=== PATIENT | female | born 1955 | race Caucasian/White ===

== ENCOUNTER 2021-08-09 18:41 | Inpatient (IN) | payer MEDICARE ==
[~2021-08-09] VITALS: Ht 167.6 cm; Wt 88.3 kg
--- NOTE | 2021-08-09 | NUR ---
SHARA NOTES COMPLAINED OF RIGHT HIP PAIN- MORPHINE 2 MG IV GIVEN ORDERED, V/S STABLE Addendum: 08/10/21 at 0348 by EAGLE MARTINEZ RN RIGHT DATE 08/10/21
--- NOTE | 2021-08-09 18:46 | NUR ---
BIBRA 59 FROM HOME C/O R HIP PAIN S/P GLF "I MISSED 2 STEP" 100MCG FENTANYL IV GIVEN BY EMS LABORER TIN CAN. VITALS ARE WITHIN NORMAL LIMITS. BREATHING IS EVEN AND UNLABORED.
--- NOTE | 2021-08-09 18:55 | NUR ---
AT BEDSIDE FOR EVAL.
--- NOTE | 2021-08-09 19:48 | NUR ---
BLOOD COLLECTED SENT TO LAB
--- NOTE | 2021-08-09 20:17 | NUR ---
CALLED [facility] FOR COMMUNITY SUPPORT PROFESSIONAL DR ROSARIO, SPEAKING WITH DR SOLER
--- NOTE | 2021-08-09 20:21 | NUR ---
COVID SWAB COLLECTED AND SENT TO LAB
[2021-08-09 20:23] LABS: BASOPHILS % (AUTO) 0.3 % (0.0-2.0); EOSINOPHILS % (AUTO) 2.5 % (0.0-6.0); HEMATOCRIT 40 % (33-45); HEMOGLOBIN 13.4 g/dL (11.5-14.8); LYMPHOCYTES # (AUTO) 1.3 K/uL (0.8-4.8); LYMPHOCYTES % (AUTO) 11.9 % (20.0-44.0); MEAN CORPUSCULAR HGB CONC 34 g/dl (31.0-36.0); MEAN CORPUSCULAR VOLUME 81 fL (82-100); MONOCYTES # (AUTO) 0.7 K/uL (0.1-1.30); MONOCYTES % (AUTO) 6.2 % (2.0-12.0); NEUTROPHILS # (AUTO) 8.3 K/uL (1.8-8.9); NEUTROPHILS % (AUTO) 79.1 % (43.0-81.0); PLATELET COUNT (AUTO) 302 K/uL (150-450); RED BLOOD CELL COUNT(AUTO) 4.95 MIL/uL (4.0-5.2); WHITE BLOOD COUNT (AUTO) 10.5 K/uL (4.3-11.0)
[2021-08-09] MEDS ORDERED: MORPHINE SULFATE INJ 2 MG/ML DISP.SYRIN IV ONE (20:30)
[2021-08-09] MEDS ORDERED: ONDANSETRON HCL/PF - ER 4 MG/2 ML VIAL IV ONE (20:30)
[2021-08-09] MEDS ORDERED: ONDANSETRON HCL/PF 4 MG/2 ML VIAL ONE (20:32)
[2021-08-09] MEDS ORDERED: MORPHINE SULFATE INJ 4 MG/ML DISP.SYRIN ONE (20:32)
[2021-08-09 20:48] LABS: CALCIUM, SERUM 8.6 mg/dL (8.5-10.1); CREATININE 0.6 mg/dL (0.6-1.3); POTASSIUM 4.3 mmol/L (3.5-5.1)
--- NOTE | 2021-08-09 20:57 | NUR ---
LAB PAGED FOR BLOOD WORK RESULTS
--- NOTE | 2021-08-09 21:48 | NUR ---
MS 304-2
[2021-08-09] MEDS ORDERED: ACETAMINOPHEN 325 MG TABLET PO PRN (22:00)
[2021-08-09] MEDS ORDERED: ONDANSETRON HCL/PF 4 MG/2 ML VIAL IVP PRN (22:00)
[2021-08-09] MEDS ORDERED: DEXTROSE 50%-WATER 50 ML DISP.SYRIN IV PRN (22:00)
--- NOTE | 2021-08-09 22:38 | NUR ---
REPORT GIVEN TO SHARA GUILLERMO
--- NOTE | 2021-08-09 22:41 | NUR ---
PT TRANSFERRED, VSS, NO ACUTE DISTRESS NOTED.
[2021-08-09 22:45] VITALS: BP_SYST 134; BP_SYST 140; BP_DIAS 74; BP_DIAS 77
[2021-08-09 23:15] VITALS: BP 134/77
--- NOTE | 2021-08-09 23:15 | NUR ---
RN NOTES RECEIVED PATIENT FROM ER WITH DX. ACUTE HIP PAIN, A/OX4, ADMISSION INSTRUCTION WAS RENDERED PATIENT HAS PLAQUE PSORIASIS AT HER BACK BUT WAS NOT ABLE TAKE PICTURE BECAUSE PATIENT HAS HIP FRACTURE, ADMISSION INSTRUCTIONS WAS RENDEREDM CALL LIGHT WITHIN REACH,[id number], WILL CONTINUE TO MONITOR
[2021-08-09] MEDS: IV NS 0.9% 1,000 ML IV PRN (23:35)
[2021-08-09] MEDS: BLOOD SUGAR DIAGNOSTIC 1 EACH STRIP IN SCH (23:35)
--- NOTE | 2021-08-10 | NUR ---
RN NOTES COMPLAINED OF RIGHT HIP PAIN -MORPHINE 2 MG IV GIVEN ORDERED, V/S STABLE
--- NOTE | 2021-08-10 | NUR ---
RN NOTES BLOOD SUGAR-[id number], NO COVERAGE GIVEN PT, IS NPO
[2021-08-10] MEDS: MORPHINE SULFATE INJ 2 MG/ML DISP.SYRIN IV PRN ×6 (00:02→19:54)
[2021-08-10] MEDS ORDERED: METF-442 PO (01:42)
--- NOTE | 2021-08-10 04:00 | NUR ---
RN NOTES COMPLAINED OF RIGHT HIP PAIN- MORPHINE 2 MG IV GIVEN ORDERED, V/S STABLE
[2021-08-10] MEDS ORDERED: ROSU10TA2 PO (04:17)
[2021-08-10] MEDS ORDERED: AMLO-62 PO (04:17)
[2021-08-10] MEDS ORDERED: SEMA7TAB PO (04:17)
[2021-08-10] MEDS ORDERED: GLIP5TAB13 PO (04:17)
[2021-08-10] MEDS: BLOOD SUGAR DIAGNOSTIC 1 EACH STRIP IN SCH ×3 (05:34→18:01)
--- NOTE | 2021-08-10 06:30 | NUR ---
RN NOTES BLOOD SUGAR-[id number], NO COVERAGE PT. IS NPO
--- NOTE | 2021-08-10 06:57 | NUR ---
RN NOTES AWAKE, PAIN IS TOLERABLE AT THIS TIME, NO SOB, MORNING CARE RENDERED, CALL LIGHT WITHIN REACH, [id number], PT. NEEDS ATTENDED
[2021-08-10 07:23] LABS: BASOPHILS % (AUTO) 0.5 % (0.0-2.0); EOSINOPHILS % (AUTO) 2.8 % (0.0-6.0); HEMATOCRIT 35 % (33-45); HEMOGLOBIN 11.8 g/dL (11.5-14.8); LYMPHOCYTES # (AUTO) 1.6 K/uL (0.8-4.8); LYMPHOCYTES % (AUTO) 21.7 % (20.0-44.0); MEAN CORPUSCULAR HGB CONC 34 g/dl (31.0-36.0); MEAN CORPUSCULAR VOLUME 81 fL (82-100); MONOCYTES # (AUTO) 0.8 K/uL (0.1-1.30); MONOCYTES % (AUTO) 10.6 % (2.0-12.0); NEUTROPHILS # (AUTO) 4.8 K/uL (1.8-8.9); NEUTROPHILS % (AUTO) 64.4 % (43.0-81.0); PLATELET COUNT (AUTO) 267 K/uL (150-450); RED BLOOD CELL COUNT(AUTO) 4.31 MIL/uL (4.0-5.2); WHITE BLOOD COUNT (AUTO) 7.5 K/uL (4.3-11.0)
--- NOTE | 2021-08-10 07:37 | NUR ---
MS RN OPENING NOTES RECEIVED PATIENT IN BED AWAKE, A/O X4, VERBALLY RESPONSIVE. NO SIGNS OF ACUTE DISTRESS NOTED. ON ROOM AIR, TOLERATING WELL. NO SOB NOTED. IV ACCESS ON RFA #20G INTACT AND PATENT WITH NSS @75 ML/HR RUNNING. PATIENT REMAINS ON NPO FOR SURGERY. DENIES ANY PAIN AT THIS TIME. SAFETY MEASURES IN PLACE. BED LOCKED, SR UP X2, CALL LIGHT PLACED WITHIN EASY REACH. WILL CONTINUE TO MONITOR.
[2021-08-10 08:11] VITALS: BP 129/74
[2021-08-10] MEDS: PANTOPRAZOLE 40 MG VIAL IV SCH (08:49)
[2021-08-10 10:30] LABS: CALCIUM, SERUM 8.1 mg/dL (8.5-10.1); CREATININE 0.6 mg/dL (0.6-1.3); MAGNESIUM 1.4 mg/dL (1.8-2.4); PHOSPHORUS 4.3 mg/dL (2.5-4.9); POTASSIUM 4.1 mmol/L (3.5-5.1)
[2021-08-10] MEDS: IV NS 0.9% 1,000 ML IV PRN (12:35)
[2021-08-10 15:39] VITALS: BP 135/79
[2021-08-10] MEDS: INSULIN REGULAR, HUMAN 100 UNIT/ML 3 ML VIAL SQ PRN (18:04)
--- NOTE | 2021-08-10 19:00 | NUR ---
MS RN CLOSING NOTES PATIENT IN BED AWAKE, A/O X4, VERBALLY RESPONSIVE. NO SIGNS OF ACUTE DISTRESS NOTED. REMAINS ON ROOM AIR, TOLERATING WELL. NO SOB NOTED. IV ACCESS ON RFA #20G INTACT AND PATENT WITH NSS @75 ML/HR RUNNING. PATIENT WITH C/O PAIN ON RIGHT HIP, MORPHINE GIVEN ORDERED. SAFETY MEASURES IN PLACE. BED LOCKED, SR UP X2, CALL LIGHT PLACED WITHIN EASY REACH. WILL ENDORSE TO NEXT SHIFT.
[2021-08-10] MEDS ORDERED: INSULIN REGULAR, HUMAN 100 UNIT/ML 3 ML VIAL SQ PRN (19:30)
[2021-08-10] MEDS ORDERED: DEXTROSE 50%-WATER 50 ML DISP.SYRIN IV PRN (19:30)
--- NOTE | 2021-08-10 19:33 | NUR ---
MS RN OPENING NOTES: RECEIVED PATIENT AWAKE IN BED, BED IN LOW POSITION, CALL LIGHTS WITHIN REACH, NO COMPLAIN OF PAIN AND DISCOMFORT AT THIS TIME, PATIENT IS A/OX4 ABLE TO MAKE NEEDS KNOWN, WITH IV LINE AT RAC#20 WITH ONGOING NSS@75ML PER HOUR INFUSING WELL, PATIENT KEPT CLEAN AND DRY, ALL NEEDS MET WILL CONTINUE TO MONITOR.
[2021-08-10 20:00] VITALS: BP 135/86
[2021-08-10] MEDS ORDERED: diphenhydrAMINE HCL 50 MG/ML VIAL IV ONE (20:30)
[2021-08-10] MEDS ORDERED: ACETAMINOPHEN 325 MG TABLET PO ONE (20:30)
[2021-08-10] MEDS ORDERED: BLOOD SUGAR DIAGNOSTIC 1 EACH STRIP IN SCH (22:00)
[2021-08-10 22:09] VITALS: BP 103/54
[2021-08-10] MEDS: ATORVASTATIN 10 MG TABLET PO SCH (22:22)
--- NOTE | 2021-08-10 22:27 | NUR ---
RN NOTES: MEDICATION NOT GIVEN TRANSFUSION WILL DE DONE IN AM CN, NURSING SUPV MADE AWARE PROCEDURE AT 1400
[2021-08-10 22:39] VITALS: BP 135/86
--- NOTE | 2021-08-10 23:00 | NUR ---
RN NOTES: RECEIVED A TXT ORDER FROM CECIL ESCOBEDO TO ORDER AND TRANSFUSE 4 UNITS OF FFP PRIOR TO PROCEDURE ORDERED NOTED AND CARRIED OUT.
[2021-08-11] VITALS (8 sets, daily range): BP systolic 115–145; BP diastolic 69–81
[2021-08-11] MEDS: MORPHINE SULFATE INJ 2 MG/ML DISP.SYRIN IV PRN ×4 (00:41→22:46)
--- NOTE | 2021-08-11 01:02 | NUR ---
RN NOTES: [id number]- NO INSULIN GIVEN PATIENT ON NPO POST MIDNIGHT WITH PROCEDURE TOMORROW
[2021-08-11] MEDS: IV NS 0.9% 1,000 ML IV PRN (02:50)
[2021-08-11] MEDS: BLOOD SUGAR DIAGNOSTIC 1 EACH STRIP IN SCH ×4 (06:21→17:36)
[2021-08-11 06:37] LABS: BASOPHILS % (AUTO) 0.4 % (0.0-2.0); EOSINOPHILS % (AUTO) 2.3 % (0.0-6.0); HEMATOCRIT 34 % (33-45); HEMOGLOBIN 11.5 g/dL (11.5-14.8); LYMPHOCYTES # (AUTO) 1.1 K/uL (0.8-4.8); LYMPHOCYTES % (AUTO) 13.2 % (20.0-44.0); MEAN CORPUSCULAR HGB CONC 34 g/dl (31.0-36.0); MEAN CORPUSCULAR VOLUME 82 fL (82-100); MONOCYTES # (AUTO) 0.7 K/uL (0.1-1.30); MONOCYTES % (AUTO) 8.9 % (2.0-12.0); NEUTROPHILS # (AUTO) 6.1 K/uL (1.8-8.9); NEUTROPHILS % (AUTO) 75.2 % (43.0-81.0); PLATELET COUNT (AUTO) 234 K/uL (150-450); RED BLOOD CELL COUNT(AUTO) 4.18 MIL/uL (4.0-5.2); WHITE BLOOD COUNT (AUTO) 8.1 K/uL (4.3-11.0)
--- NOTE | 2021-08-11 06:50 | NUR ---
RN CLOSING NOTES: PATIENT SLEEP IN BED COMFORTABLY, AROUSABLE TO VERBAL STIMULI, BED IN LOW POSITION, CALL LIGHTS WITHIN REACH, NO COMPLAIN OF PAIN AND DISCOMFORT AT THIS TIME, PATIENT WITH IV LINE AT RAC#20 WITH ONGOING NSS@75ML/HR INFUSING WELL, PATIENT ON NPO PRIOR TO HIP SURGERY IN THE AFTERNOON, ON ROBERTSON CATHETER WITH 950CC URINE OUTPUT, PATIENT KEPT CLEAN AND DRY, ALL NEEDS MET, WILL ENDORSE TO INCOMING SHIFT.
--- NOTE | 2021-08-11 07:37 | NUR ---
MS RN OPENING NOTES RECEIVED PATIENT IN BED AWAKE, A/O X4, ABLE TO MAKE NEEDS KNOWN. NO SIGNS OF ACUTE DISTRESS NOTED. ON ROOM AIR, TOLERATING WELL. NO SOB NOTED. IV ACCESS ON RFA #20G INTACT AND PATENT WITH NSS @75 ML/HR RUNNING. PATIENT REMAINS ON NPO FOR SURGERY. DENIES ANY PAIN AT THIS TIME. WITH FC TO URINE BAG DRAINING CLEAR YELLOW COLORED URINE. SAFETY MEASURES IN PLACE. BED LOCKED, SR UP X2, CALL LIGHT PLACED WITHIN EASY REACH. WILL CONTINUE TO MONITOR ACCORDINGLY.
[2021-08-11] MEDS ORDERED: ACETAMINOPHEN 325 MG TABLET PO ONE (08:00)
[2021-08-11] MEDS: LOSARTAN POTASSIUM 50 MG TABLET PO SCH (08:00)
[2021-08-11] MEDS ORDERED: diphenhydrAMINE HCL 50 MG/ML VIAL IV ONE (08:00)
[2021-08-11] MEDS: glipiZIDE 5 MG TABLET PO SCH (08:01)
[2021-08-11] MEDS: METFORMIN 500 MG TABLET PO SCH ×2 (08:01→17:00)
[2021-08-11] MEDS: PANTOPRAZOLE 40 MG VIAL IV SCH (08:07)
--- NOTE | 2021-08-11 09:20 | NUR ---
RN NOTES STARTED TRANSFUSION OF FFP #1, VS WITHIN NORMAL LIMITS. BLOOD PRODUCTS VERIFIED BY 2 RN. WILL CONTINUE TO MONITOR.
--- NOTE | 2021-08-11 10:05 | NUR ---
RN NOTES FIRST UNIT FFP DONE. PATIENT TOLERATED TRANSFUSION WELL, NO UNTOWARD REACTIONS NOTED.
--- NOTE | 2021-08-11 10:20 | NUR ---
RN NOTES STARTED TRANSFUSION OF 2ND UNIT FFP. VITAL SIGSN WITHIN NORMAL LIMITS. BLOOD PRODCUT VERIFIED BY 2 RN. WILL CONTINUE TO MONITOR.
--- NOTE | 2021-08-11 11:05 | NUR ---
RN NOTES SECOND UNIT FFP DONE. PATIENT TOLERATED TRANSFUSION WELL, NO UNTOWARD REACTIONS NOTED.
--- NOTE | 2021-08-11 11:17 | NUR ---
RN NOTES STARTED TRANSFUSION OF 3RD UNIT FFP. VITAL SIGNS WITHIN NORMAL LIMITS. BLOOD PRODCUT VERIFIED BY 2 RN. WILL CONTINUE TO MONITOR.
--- NOTE | 2021-08-11 12:09 | NUR ---
RN NOTES 3RD UNIT FFP DONE. PATIENT TOLERATED TRANSFUSION WELL, NO UNTOWARD REACTIONS NOTED.
--- NOTE | 2021-08-11 13:50 | NUR ---
RN NOTES STARTED TRANSFUSION OF 4TH INIT FFP. VS WITHIN NORMAL LIMITS. WILL CONTINUE TO MONITOR ACCORDINGLY.
--- NOTE | 2021-08-11 14:40 | NUR ---
RN NOTES 4TH FFP TRANSFUSION DONE. NO UNTOWARD REACTIONS NOTED. SYSTEM ON TRANSFUSION SECTION UNABLE TO SAVE TRANSFUSION REPORT.
[2021-08-11] MEDS ORDERED: BUPIVACAINE 0.5 % PF 150 MG/30 ML VIAL ONE (14:59)
[2021-08-11] MEDS ORDERED: ANESTHESIA TRAY IN PYXIS 1 EA TRAY MC ONE (14:59)
--- NOTE | 2021-08-11 15:00 | NUR ---
RN NOTES PATIENT WAS PICKED UP BY O.R STAFF. LEFT UNIT IN STABLE CONDITION.
[2021-08-11] MEDS ORDERED: ROCURONIUM BROMIDE 50 MG/5 ML ONE ×2 (15:02→16:03)
[2021-08-11] MEDS ORDERED: FENTANYL PF 100MCG/2ML AMPUL ONE (15:02)
[2021-08-11] MEDS ORDERED: HYDROMORPHONE INJ 2 MG/ML DISP.SYRIN ONE (15:02)
[2021-08-11] MEDS ORDERED: MIDAZOLAM HCL 2 MG/2ML VIAL ONE (15:02)
[2021-08-11] MEDS ORDERED: TRANEXAMIC ACID 1,000 MG in IV NS 0.9% 100 ML IV ONE (16:00)
[2021-08-11] MEDS ORDERED: GELATIN SPONGE,ABSORBABLE 1 EA SPONGE TP ONE (16:03)
[2021-08-11] MEDS ORDERED: BISACODYL SUPP (10 MG) 10 MG/SUPP.RECT SUPP.RECT RC PRN (18:00)
[2021-08-11] MEDS ORDERED: SENNOSIDES 8.6 MG TABLET PO PRN (18:00)
[2021-08-11 18:18] LABS: HEMOGLOBIN 10.1 g/dL (11.5-14.8)
[2021-08-11] MEDS ORDERED: DOCUSATE SODIUM 100 MG CAPSULE PO PRN (18:30)
[2021-08-11] MEDS ORDERED: ZOLPIDEM TARTRATE 5 MG TABLET PO PRN (18:30)
--- NOTE | 2021-08-11 18:57 | NUR ---
MS RN CLOSING NOTES RECEIVED PATIENT FROM RECOVERY ROOM, AWAKE, A/O X4, ABLE TO MAKE NEEDS KNOWN. NO SIGNS OF ACUTE DISTRESS NOTED. O2 AT 3LPM, TOLERATING WELL. NO SOB NOTED. IV ACCESS ON RFA #20G INTACT AND PATENT WITH NSS @75 ML/HR RUNNING. IV ACESS ON RIGHT WRIST G#18, PATENT, INTACT AND FLUSHES WELL. PATIENT REMAINS ON REGULAR DIET. DENIES ANY PAIN AT THIS TIME. WITH FC TO URINE BAG DRAINING CLEAR YELLOW COLORED URINE. NOTED WITH DRY NAD INTACT DRESSING ON RIGHT HIP SURGICAL SITE. SAFETY MEASURES IN PLACE. BED LOCKED, SR UP X2, CALL LIGHT PLACED WITHIN EASY REACH. ALL NEEDS ATTENDED AND MET. DUE MEDS GIVEN ORDERED. WILL ENDORSE TO ONCOMING SHIFT FOR REJI.
[2021-08-11] MEDS: ATORVASTATIN 10 MG TABLET PO SCH (21:30)
[2021-08-12] MEDS: BLOOD SUGAR DIAGNOSTIC 1 EACH STRIP IN SCH ×5 (00:23→23:57)
[2021-08-12] MEDS: IV NS 0.9% 1,000 ML IV PRN (00:23)
[2021-08-12] MEDS: ANCEF 1 GM/50 ML D5W IV SCH ×2 (00:23→08:04)
[2021-08-12] MEDS: INSULIN REGULAR, HUMAN 100 UNIT/ML 3 ML VIAL SQ PRN ×4 (00:45→23:59)
[2021-08-12] MEDS: MORPHINE SULFATE INJ 2 MG/ML DISP.SYRIN IV PRN ×2 (04:50→10:14)
--- NOTE | 2021-08-12 04:50 | NUR ---
MS RN NOTES PAIN MANAGEMENT C/O RIGHT HIP PAIN 10/10 ON PAIN SCALE,MORPHINE 2MG IV GIVEN
--- NOTE | 2021-08-12 06:44 | NUR ---
MS RN NOTES AWAKE & RESPONSIVE. NOT IN ANY DISTRESS. NO SOB NOTED. DENIES ANY PAIN OR DISCOMFORT AT THIS TIME. WITH IVF INFUSING WELL. MONITORED ACCORDINGLY. CALL LIGHT WITHIN REACH. BED IN LOWEST POSITION. SR UP X 3 WITH BED ALARM ON FOR SAFETY. WILL ENDORSE TO NEXT SHIFT.
--- NOTE | 2021-08-12 07:20 | NUR ---
MS RN OPENING NOTES RECEIVED PATIENT IN AWAKE IN BED. A/O X4, ABLE TO MAKE NEEDS KNOWN. NO S/SX OF ACUTE DISTRESS NOTED. ON ROOM AIR, TOLERATING WELL. NO SOB NOTED. IV ACCESS RFA #20G INTACT AND PATENT WITH NSS RUNNING @75 ML/HR. DENIES ANY PAIN AT THIS TIME. PT WITH FC DRAINING CLEAR YELLOW COLORED URINE. SAFETY MEASURES IN PLACE WITH BED LOCKED AT LOW POSITION, SR UP X2, CALL LIGHT PLACED WITHIN EASY REACH. WILL CONTINUE TO MONITOR.
[2021-08-12 08:00] VITALS: BP 123/66
[2021-08-12] MEDS: glipiZIDE 5 MG TABLET PO SCH (08:22)
[2021-08-12] MEDS: LOSARTAN POTASSIUM 50 MG TABLET PO SCH (08:22)
[2021-08-12] MEDS: PANTOPRAZOLE 40 MG VIAL IV SCH (08:22)
[2021-08-12] MEDS: METFORMIN 500 MG TABLET PO SCH ×2 (08:22→16:38)
[2021-08-12 16:00] VITALS: BP 117/67
[2021-08-12] MEDS ORDERED: diphenhydrAMINE HCL 50 MG/ML VIAL IV ONE (19:00)
[2021-08-12] MEDS ORDERED: ACETAMINOPHEN 325 MG TABLET PO ONE (19:00)
--- NOTE | 2021-08-12 19:15 | NUR ---
MS RN CLOSING NOTES PATIENT IN BED. ABLE TO MAKE NEEDS KNOWN. NO S/SX OF ACUTE DISTRESS NOTED. ON ROOM AIR, TOLERATING WELL. NO SOB NOTED. IV ACCESS RFA #20G INTACT AND PATENT WITH NSS RUNNING @75 ML/HR. DENIES ANY PAIN AT THIS TIME. SAFETY MEASURES IN PLACE WITH BED LOCKED AT LOW POSITION, SR UP X2, CALL LIGHT PLACED WITHIN EASY REACH. WILL ENDORSE CONTINUITY OF CARE TO ONCOMING SHIFT.
--- NOTE | 2021-08-12 19:30 | NUR ---
MS RN OPENING NOTES: RECEIVED REPORT AT PATIENT'S BEDSIDE. PATIENT IN NAD AND VSS AT THIS TIME. ALERT AND ORIENTED X4. COMMUNICATIVE. DISCUSSED WITH PATIENT NEW ORDER FOR 2 UNITS FFP. PATIENT ASKED, "WHY DID THE DOCTOR ORDER TWO MORE UNITS? I JUST RECEIVED 4 UNITS YESTERDAY." SENT MESSAGE TO DR. DEGROOT RELAYING LAST LAB RESULT WHICH WAS YESTERDAY @1807 HGB 10. @ 2009 DR. DEGROOT ORDERED STAT DRAW CBC, PTT, PT W INR. @2019 LAB DRAWN. RESULTS PENDING
[2021-08-12 20:00] VITALS: BP 133/74
[2021-08-12 20:25] LABS: BASOPHILS % (AUTO) 0.3 % (0.0-2.0); EOSINOPHILS % (AUTO) 1.7 % (0.0-6.0); HEMATOCRIT 27 % (33-45); HEMOGLOBIN 8.9 g/dL (11.5-14.8); LYMPHOCYTES # (AUTO) 1.3 K/uL (0.8-4.8); LYMPHOCYTES % (AUTO) 14.5 % (20.0-44.0); MEAN CORPUSCULAR HGB CONC 34 g/dl (31.0-36.0); MEAN CORPUSCULAR VOLUME 81 fL (82-100); MONOCYTES # (AUTO) 0.9 K/uL (0.1-1.30); MONOCYTES % (AUTO) 9.9 % (2.0-12.0); NEUTROPHILS # (AUTO) 6.6 K/uL (1.8-8.9); NEUTROPHILS % (AUTO) 73.6 % (43.0-81.0); PLATELET COUNT (AUTO) 247 K/uL (150-450); RED BLOOD CELL COUNT(AUTO) 3.26 MIL/uL (4.0-5.2)
[2021-08-12 20:40] LABS: ALBUMIN 2.7 g/dL (3.4-5.0); BILIRUBIN,TOTAL 0.6 mg/dL (0.2-1.0); CALCIUM, SERUM 7.3 mg/dL (8.5-10.1); CREATININE 0.7 mg/dL (0.6-1.3); PHOSPHORUS 2.7 mg/dL (2.5-4.9); POTASSIUM 3.8 mmol/L (3.5-5.1); TOTAL PROTEIN, SERUM 6.6 g/dL (6.4-8.2)
--- NOTE | 2021-08-12 20:45 | NUR ---
MS RN NOTES: LAB RESULTS RECEIVED HGB 8.8.[address] DEGROOT ON UNIT AND NOTIFIED. OK TO INFUSE FFP X2 UNITS. OBTAINED VS TEMP 100.8, HR 102, BP 132/72, RR 22. CRITICAL LAB RESULTS MAGNESIUM 1.2. NOTIFIED FOSTER PARENT AUTO BODY REPAIR TEACHER. NEW ORDERS PENDING. TYLENOL 650MG GIVEN PER PRN ORDER.
[2021-08-12 21:03] LABS: MAGNESIUM 1.2 mg/dL (1.8-2.4)
[2021-08-12] MEDS ORDERED: Magnesium 1GM/D5W 100ML PREMIX PIGGYBACK IV ONE (21:30)
[2021-08-12] MEDS: ATORVASTATIN 10 MG TABLET PO SCH (23:14)
[2021-08-13] VITALS (8 sets, daily range): BP systolic 108–158; BP diastolic 72–80
--- NOTE | 2021-08-13 00:53 | NUR ---
MS RN NOTES: TEMP RETAKE: 99.3
--- NOTE | 2021-08-13 01:00 | NUR ---
MS RN NOTE: NOTIFIED MH TEACHER (CC) OF PATIENT'S 99.3 TEMP. OK FOR FFP TRANSFUSION. 0115 NOTIFIED LAB FOR DIRECTOR OF CONTENT AND PROGRAMMING. TARGETING ACQUISITION OFFICER STATED NO CLS ON DUTY TO DISPENSE BLOOD AND THEREFORE THIS RN CANNOT DIRECTOR OF CONTENT AND PROGRAMMING FFP TO TRANSFUSE. NOTIFIED MH TEACHER
[2021-08-13] MEDS: HYDROCODONE/APAP 5/325MG TABLET PO PRN ×3 (01:06→22:43)
--- NOTE | 2021-08-13 03:55 | NUR ---
MS RN NOTE: F/C D/C'D PER DR. ROSARIO. PATIENT DENIES PAIN OR DISCOMFORT TO SITE.
[2021-08-13] MEDS: IV NS 0.9% 1,000 ML IV PRN (05:48)
[2021-08-13] MEDS: BLOOD SUGAR DIAGNOSTIC 1 EACH STRIP IN SCH ×3 (06:14→17:52)
[2021-08-13] MEDS: INSULIN REGULAR, HUMAN 100 UNIT/ML 3 ML VIAL SQ PRN ×2 (06:16→11:54)
[2021-08-13 06:36] LABS: BASOPHILS % (AUTO) 0.4 % (0.0-2.0); EOSINOPHILS % (AUTO) 2.6 % (0.0-6.0); HEMATOCRIT 25 % (33-45); HEMOGLOBIN 8.6 g/dL (11.5-14.8); LYMPHOCYTES # (AUTO) 1.4 K/uL (0.8-4.8); LYMPHOCYTES % (AUTO) 20.3 % (20.0-44.0); MEAN CORPUSCULAR HGB CONC 34 g/dl (31.0-36.0); MEAN CORPUSCULAR VOLUME 81 fL (82-100); MONOCYTES # (AUTO) 0.7 K/uL (0.1-1.30); MONOCYTES % (AUTO) 10.4 % (2.0-12.0); NEUTROPHILS # (AUTO) 4.7 K/uL (1.8-8.9); NEUTROPHILS % (AUTO) 66.3 % (43.0-81.0); PLATELET COUNT (AUTO) 250 K/uL (150-450); RED BLOOD CELL COUNT(AUTO) 3.14 MIL/uL (4.0-5.2); WHITE BLOOD COUNT (AUTO) 7.1 K/uL (4.3-11.0)
[2021-08-13 06:46] LABS: ALBUMIN 2.5 g/dL (3.4-5.0); BILIRUBIN,TOTAL 0.6 mg/dL (0.2-1.0); CALCIUM, SERUM 7.3 mg/dL (8.5-10.1); CREATININE 0.6 mg/dL (0.6-1.3); MAGNESIUM 1.6 mg/dL (1.8-2.4); PHOSPHORUS 3.2 mg/dL (2.5-4.9); POTASSIUM 3.7 mmol/L (3.5-5.1); TOTAL PROTEIN, SERUM 6.4 g/dL (6.4-8.2)
--- NOTE | 2021-08-13 07:25 | NUR ---
MS RN OPENING NOTES RECEIVED PATIENT ASLEEP IN BED, EASY TO AROUSE. A/O X4, ABLE TO MAKE NEEDS KNOWN. NO S/SX OF ACUTE DISTRESS NOTED. ON ROOM AIR, TOLERATING WELL. NO SOB NOTED. IV ACCESS RFA #20G INTACT AND PATENT WITH NSS RUNNING @75 ML/HR. DENIES ANY PAIN AT THIS TIME. SAFETY MEASURES IN PLACE WITH BED LOCKED AT LOW POSITION, SR UP X2, CALL LIGHT PLACED WITHIN EASY REACH. WILL CONTINUE TO MONITOR.
[2021-08-13 08:05] LABS: BILIRUBIN,URINE NEGATIVE (NEGATIVE); COLOR,URINE YELLOW (YELLOW); LEUKOCYTE ESTERASE ,URINE TRACE (NEGATIVE); NITRITE, URINE NEGATIVE (NEGATIVE); PROTEIN,URINE TRACE mg/dl (NEGATIVE); UGLUCOSE NEGATIVE (NEGATIVE); UROBILINOGEN,URINE 0.2 EU/dL (0.2)
[2021-08-13] MEDS: PANTOPRAZOLE 40 MG TABLET.DR PO SCH (08:22)
[2021-08-13] MEDS: MORPHINE SULFATE INJ 2 MG/ML DISP.SYRIN IV PRN ×3 (08:33→21:34)
[2021-08-13] MEDS: LOSARTAN POTASSIUM 50 MG TABLET PO SCH (08:33)
[2021-08-13] MEDS: METFORMIN 500 MG TABLET PO SCH ×2 (08:34→16:32)
[2021-08-13] MEDS: glipiZIDE 5 MG TABLET PO SCH (08:35)
[2021-08-13] MEDS: FOLIC ACID 1 MG TABLET PO SCH (08:35)
--- NOTE | 2021-08-13 10:00 | NUR ---
RN NOTE IV ACCESS WAS ACCIDENTALLY REMOVED BY PATIENT DURING TURNING. MIDLINE ORDER OBTAINED. LUCILLE GARCIA NURSE SUCCESSFULLY INSERTED MIDLINE IN RIGHT UPPER ARM.
--- NOTE | 2021-08-13 10:00 | NUR ---
RN NOTE CALLED PATIENT'S CIRCUIT BREAKER MECHANIC DR. DANILO MELENDEZ TO FIND OUT FAX NUMBER FOR RECORDS; UNABLE TO REACH LIVE PERSON, WAS PLACED ON HOLD FOR 5 MINS+. WILL TRY AGAIN AT LATER TIME.
[2021-08-13] MEDS: CALCIUM CARB 600MG /VIT D 1 EACH TABLET PO SCH (10:04)
--- NOTE | 2021-08-13 11:25 | NUR ---
RN NOTE WENT TO BLOOD BANK TO GOAT HERDER FFP. PER SPACE AND STORAGE CLERK, HE WAS UNABLE TO SCAN AND PROCESS THE FFP POSSIBLY D/T TYPE AND SCREEN SOON TO . [employer] TECH REQUESTS TO ORDER NEW TYPE AND SCREEN AFTER 1130 AND COME BACK TO GOAT HERDER FFP ONCE RESULTED TYPE AND SCREEN. PAULA, CHARGE NURSE MADE AWARE.
[2021-08-13] MEDS: Magnesium 1GM/D5W 100ML PREMIX 100 ML IV SCH ×2 (11:32→12:28)
[2021-08-13 12:36] LABS: BACTERIA,URINE Rare /HPF (None Seen); SQUAMOUS EPITHELIAL CELL,UR Few /HPF (None Seen); URIC ACID CRYSTALS,URINE Moderate /HPF (None Seen); WBC,URINE 0-2 /HPF (0-3)
[2021-08-13] MEDS: SOD FERRIC GLUC 125 MG in IV NS 0.9% 100 ML IV SCH (14:08)
[2021-08-13] MEDS ORDERED: diphenhydrAMINE HCL 50 MG/ML VIAL IV ONE (14:30)
[2021-08-13] MEDS ORDERED: ACETAMINOPHEN 325 MG TABLET PO ONE (14:30)
--- NOTE | 2021-08-13 15:03 | NUR ---
RN NOTE TYPE AND SCREEN STILL NOT PROCESSED AT THIS TIME PER LAB/BLOOD BANK, THEREFORE UNABLE TO SENIOR REGULATORY AFFAIRS SPECIALIST FFP.
--- NOTE | 2021-08-13 17:22 | NUR ---
RN NOTE STARTED 1 UNIT OF FFP AT THIS TIME PER DR. DEGROOT ORDER. VITALS STABLE. WILL MONITOR CLOSELY FOR ADVERSE REACTIONS.
--- NOTE | 2021-08-13 18:00 | NUR ---
MS RN NOTE SECOND UNIT OF FFP TRANSFUSED AT THIS TIME. PRODUCT UNABLE TO SCAN IN SYSTEM. PRODUCT AND PATIENT ALL VERIFIED WITH SHARA BANERJEE AT BEDSIDE AND WITNESSED. ALL VITALS STABLE BP 144/60 PULSE 74 TEMP 98 RR 18. WILL CHECK VITALS AT 15 MIN INTERVAL AND ONE HOUR.
--- NOTE | 2021-08-13 19:29 | NUR ---
MS RN CLOSING NOTES PATIENT IN BED. ABLE TO MAKE NEEDS KNOWN. NO S/SX OF ACUTE DISTRESS NOTED. ON ROOM AIR, TOLERATING WELL. NO SOB NOTED. IV ACCESS RUAMIDLINE INTACT AND PATENT WITH 2ND UNIT OF FFP RUNNING AT THIS TIME. DENIES ANY PAIN AT THIS TIME. SAFETY MEASURES IN PLACE WITH BED LOCKED AT LOW POSITION, SR UP X2, CALL LIGHT PLACED WITHIN EASY REACH. WILL ENDORSE CONTINUITY OF CARE TO ONCOMING SHIFT.
[2021-08-13] MEDS: ATORVASTATIN 10 MG TABLET PO SCH (21:24)
[2021-08-14] VITALS (10 sets, daily range): BP systolic 132–157; BP diastolic 73–85
[2021-08-14] MEDS: BLOOD SUGAR DIAGNOSTIC 1 EACH STRIP IN SCH ×4 (00:08→17:08)
[2021-08-14] MEDS: INSULIN REGULAR, HUMAN 100 UNIT/ML 3 ML VIAL SQ PRN ×3 (00:09→11:43)
[2021-08-14] MEDS: IV NS 0.9% 1,000 ML IV PRN (06:40)
--- NOTE | 2021-08-14 06:57 | NUR ---
Patient has been stable overnight. C/o pain x2 relieved with PRN pain medication. No signs of distress. Tolerating IVF well. Able to get to BSC with 2 person assist. clear yellow urine/. No s/s of hypo or hyperglycemic reactions noted. VSS. Tolerated FFP transfusion well earlier in the night.
[2021-08-14 07:18] LABS: CALCIUM, SERUM 8.1 mg/dL (8.5-10.1); CREATININE 0.5 mg/dL (0.6-1.3); POTASSIUM 3.4 mmol/L (3.5-5.1)
[2021-08-14 07:45] LABS: BASOPHILS % (AUTO) 0.4 % (0.0-2.0); EOSINOPHILS % (AUTO) 3.6 % (0.0-6.0); HEMATOCRIT 26 % (33-45); LYMPHOCYTES # (AUTO) 0.7 K/uL (0.8-4.8); LYMPHOCYTES % (AUTO) 11.5 % (20.0-44.0); MEAN CORPUSCULAR HGB CONC 34 g/dl (31.0-36.0); MEAN CORPUSCULAR VOLUME 81 fL (82-100); MONOCYTES # (AUTO) 0.5 K/uL (0.1-1.30); MONOCYTES % (AUTO) 9.5 % (2.0-12.0); NEUTROPHILS # (AUTO) 4.3 K/uL (1.8-8.9); PLATELET COUNT (AUTO) 291 K/uL (150-450); RED BLOOD CELL COUNT(AUTO) 3.27 MIL/uL (4.0-5.2); WHITE BLOOD COUNT (AUTO) 5.7 K/uL (4.3-11.0)
[2021-08-14] MEDS: PANTOPRAZOLE 40 MG TABLET.DR PO SCH (08:32)
[2021-08-14] MEDS: FOLIC ACID 1 MG TABLET PO SCH (08:33)
[2021-08-14] MEDS: HYDROCODONE/APAP 5/325MG TABLET PO PRN ×2 (08:33→21:32)
[2021-08-14] MEDS: CALCIUM CARB 600MG /VIT D 1 EACH TABLET PO SCH (08:33)
[2021-08-14] MEDS: glipiZIDE 5 MG TABLET PO SCH (08:34)
[2021-08-14] MEDS: LOSARTAN POTASSIUM 50 MG TABLET PO SCH (08:34)
[2021-08-14] MEDS: METFORMIN 500 MG TABLET PO SCH ×2 (08:34→17:08)
[2021-08-14] MEDS ORDERED: POTASSIUM CHLORIDE 20 MEQ TAB.PRT.SR PO SCH (10:00)
--- NOTE | 2021-08-14 11:00 | NUR ---
m/s principal clerk: md visit seen and examined by dr. handley and plan to d'c pt today after ffp. pt aware and verbalized understanding. awaiting for transportation equipment painter for orders. will continue to monitor.
[2021-08-14] MEDS ORDERED: Hydrocodone/Apap 5/325MG PO (11:35)
[2021-08-14] MEDS ORDERED: Folic Acid PO (11:35)
[2021-08-14] MEDS ORDERED: FERR325T23 PO (11:37)
--- NOTE | 2021-08-14 11:45 | NUR ---
m/s steam press operator: lab associate f/u seen by alise with new orders to given 2 units off ffp. pt aware and verbalized understanding. orders acknowledged.
[2021-08-14] MEDS ORDERED: ACETAMINOPHEN 325 MG TABLET PO ONE (14:00)
[2021-08-14] MEDS ORDERED: diphenhydrAMINE HCL 50 MG/ML VIAL IV ONE (14:00)
[2021-08-14] MEDS: SOD FERRIC GLUC 125 MG in IV NS 0.9% 100 ML IV SCH (14:00)
--- NOTE | 2021-08-14 14:00 | NUR ---
m/s home worker: notes 1st unit of ffp started at this time. vss, afebrile. tylenol 650mg and benadryl 25mg ivp given by rn prior to infusion. will continue to monitor.
--- NOTE | 2021-08-14 14:11 | NUR ---
m/s associate director regulatory affairs: notes alise (senior contracts administrator) here and clarify if pt needs ferrlecit prior to d'c to snf and says okay to cancel it.
--- NOTE | 2021-08-14 14:15 | NUR ---
m/s dependency case manager: notes no a/r noted after 15mins of ffp infusion. will continue to monitor.
--- NOTE | 2021-08-14 14:50 | NUR ---
m/s agriculture inspector: notes 1 unit of ffp completed without a/r noted. remains afebrile. vss. will continue to monitor.
--- NOTE | 2021-08-14 15:08 | NUR ---
m/s stone setter apprentice: notes 2nd unit of ffp started. vss, afebrile. will continue to monitor.
--- NOTE | 2021-08-14 15:23 | NUR ---
m/s director field services: notes no a/r noted. vss. will continue to monitor.
--- NOTE | 2021-08-14 16:00 | NUR ---
m/s actionscript developer: notes spoke to dr. cavazos re: to put in the d'c order. per dr. cavazos there is no bed available today and might open up tomorrow. pt made aware. will continue to monitor.
--- NOTE | 2021-08-14 16:15 | NUR ---
m/s photolettering machine operator: notes 2nd unit of fresh frozen plasma completed without a/r noted. vss, remains afebrile. needs attended. will continue to monitor.
--- NOTE | 2021-08-14 17:00 | NUR ---
m/s barrel reamer: notes dinner served with hob elevated. s/p ffp without a/r noted. instructed to call for assistance.
--- NOTE | 2021-08-14 19:20 | NUR ---
m/s free lance model: notes bedside report given to rigoberto (rn) for continuity of care.
[2021-08-14] MEDS: MORPHINE SULFATE INJ 2 MG/ML DISP.SYRIN IV PRN (19:58)
[2021-08-14] MEDS: ATORVASTATIN 10 MG TABLET PO SCH (21:33)
[2021-08-15] MEDS: INSULIN REGULAR, HUMAN 100 UNIT/ML 3 ML VIAL SQ PRN ×3 (00:52→11:36)
[2021-08-15] MEDS: BLOOD SUGAR DIAGNOSTIC 1 EACH STRIP IN SCH ×3 (00:55→11:32)
[2021-08-15] MEDS: MORPHINE SULFATE INJ 2 MG/ML DISP.SYRIN IV PRN ×2 (03:33→12:51)
[2021-08-15] MEDS: HYDROCODONE/APAP 5/325MG TABLET PO PRN (05:10)
--- NOTE | 2021-08-15 07:19 | NUR ---
Patient has been stable overnight. Is now able to get out of bed with 1 person assist and walker, just needs help elevating legs out of and back into bed. Patient can transfer from chair to chair independently however. Pain relieved with PRNs. No signs of distress. A&Ox4.
--- NOTE | 2021-08-15 07:20 | NUR ---
MS RN OPENING NOTES RECEIVED PT ON BED, AWAKE, A/O X4, VERBALLY RESPONSIVE. NO SIGNS OF ACUTE DISTRESS NOTED. ON ROOM AIR, TOLERATING WELL. NO SOB NOTED, BREATHING EVEN AND UNLABORED. IV ACCESS ON BRITT INTACT AND PATENT, WITH NS @75ML/HR RUNNING. SAFETY MEASURES IN PLACE. BED LOCKED AND IN LOWEST POSITION, SR UP X2, CALL LIGHT PLACED WITHIN EASY REACH. WILL CONTINUE TO MONITOR.
[2021-08-15 08:00] VITALS: BP 157/89
[2021-08-15] MEDS: PANTOPRAZOLE 40 MG TABLET.DR PO SCH (08:58)
[2021-08-15] MEDS: METFORMIN 500 MG TABLET PO SCH (08:58)
[2021-08-15] MEDS: FOLIC ACID 1 MG TABLET PO SCH (08:58)
[2021-08-15] MEDS: CALCIUM CARB 600MG /VIT D 1 EACH TABLET PO SCH (08:58)
[2021-08-15] MEDS: glipiZIDE 5 MG TABLET PO SCH (08:58)
[2021-08-15 08:59] VITALS: BP 157/89
[2021-08-15] MEDS: LOSARTAN POTASSIUM 50 MG TABLET PO SCH (08:59)
[2021-08-15] MEDS: SOD FERRIC GLUC 125 MG in IV NS 0.9% 100 ML IV SCH (12:11)
[2021-08-15 12:47] LABS: CREATININE 0.6 mg/dL (0.6-1.3); POTASSIUM 3.5 mmol/L (3.5-5.1)
--- NOTE | 2021-08-15 13:30 | NUR ---
HEAD OF PARTNER DEVELOPMENT NOTES PATIENT DISCHARGED TO [facility] IN STABLE CONDITION, PT ALERT AND ORIENTED X4, VERBALLY RESPONSIVE, NO SIGNS OF ACUTE DISTRESS NOTED. VITAL SIGNS TAKEN, STABLE. IV ACCESS ON BRITT REMOVED, NO BLEEDING NOTED, PRESSURE DRESSING APPLIED. ALL BELONGINGS ACCOUNTED FOR, FORMS SIGNED BY PATIENT. EXIT CARE PACKET SENT WITH PATIENT. REPORT GIVEN TO SHARA PAINTING FROM [facility]. PATIENT PICKED UP BY [facility] @1325. CN AWARE OF DISCHARGE.
== END 2021-08-15 13:30 | DRG 480 ==
LOC: ER 19:00 → MED 22:19
PROVIDERS: ADMIT Nurse Practitioner Acute Care; ATTEND Internal Medicine
PROC: 30233K1 Transfusion of Nonautologous Frozen Plasma into Peripheral Vein, Percutaneous Approach (ICD-10-PCS; 2021-08-10)
PROC: 0QS606Z Reposition Right Upper Femur with Intramedullary Internal Fixation Device, Open Approach (ICD-10-PCS; principal; 2021-08-11)
PROC: 02HV33Z Insertion of Infusion Device into Superior Vena Cava, Percutaneous Approach (ICD-10-PCS; 2021-08-13)
PROC: B548ZZA Ultrasonography of Superior Vena Cava, Guidance (ICD-10-PCS; 2021-08-13)
DX: S72.144A Nondisplaced intertrochanteric fracture of right femur, initial encounter for closed fracture (principal); D66 Hereditary factor VIII deficiency; D68.1 Hereditary factor XI deficiency; W10.9XXA Fall (on) (from) unspecified stairs and steps, initial encounter; Y92.009 Unspecified place in unspecified non-institutional (private) residence as the place of occurrence of the external cause; I10 Essential (primary) hypertension; E11.9 Type 2 diabetes mellitus without complications; Z20.822 Contact with and (suspected) exposure to COVID-19; D50.9 Iron deficiency anemia, unspecified
CPT/HCPCS: 36410; 36415; 71045-TC; 73502; 73552; 73700-TC; 80048-TC; 80053-TC; 80061-TC; 81001; 82728-TC; 82962-TC; 83540-TC; 83735-TC; 84100-TC; 84484-TC; 85025-TC; 85027-TC; 85240; 85610-TC; 85730-TC; 86850-TC; 87040-TC; 87081-TC; 87086-TC; 97110-TC; 97112-TC; 97530-TC; A4217; A6209; A6253; C1713; C9113; C9803; G0378; J0690; J1100; J1170; J1200; J1815; J2250; J2270; J2405; J2704; J2916; J3010; J3475; J3490; J7030; J7060; P9017